=== PATIENT | male | born 1990 | race African-American/Black ===

== ENCOUNTER 2019-05-28 09:26 | Inpatient (IN) | payer MEDICARE, MEDICAID ==
[~2019-05-28] VITALS: Ht 165.1 cm; Wt 70.0 kg
[~2019-05-28 09:26] MED LIST: BACLOFEN 10 MG10 MG PO; LIORESAL 10 MG10 MG PO; VITAMIN D10000 UNIT PO
[2019-05-28 09:28] VITALS: BP 132/87
[2019-05-28] MEDS ORDERED: OXCARBAZEPINE300 MG PO (09:39)
[2019-05-28] MEDS ORDERED: TYLENOL325 MG PO (09:40)
[2019-05-28] MEDS ORDERED: FLUVOXAMINE MAL25 MG PO (09:40)
[2019-05-28 10:02] LABS: ABSOLUTE EOSINOPHILS 0.2 thou/uL (0.0-0.7); ABSOLUTE LYMPHOCYTES 1.2 thou/uL (0.8-5.3); ABSOLUTE MONOCYTES 0.7 thou/uL (0.0-1.2); ABSOLUTE NEUTROPHILS 7.6 thou/uL (1.6-8.1); BASOPHILS 0.5 %; EOSINOPHILS 2.5 %; HEMATOCRIT 42.7 % (42.0-52.0); HEMOGLOBIN 14.8 gm/dL (14.0-18.0); LYMPHOCYTES 12.5 %; MCH 27.9 pg (26.0-34.0); MCHC 34.8 g/dL (28.0-37.0); MCV 80.3 fL (80.0-100.0); MONOCYTES 7.1 %; MPV 7.6 fl. (7.2-11.1); NUCLEATED RBCS 0 /100WBC; PLATELET COUNT* 257 thou/uL (150-400); POLYS 77.4 %; RBC 5.32 mil/uL (4.50-6.00); RDW-CV 13.7 % (10.5-14.5); WBC 9.8 thou/uL (4.0-11.0)
[2019-05-28 10:05] LABS: ANION GAP 8 mmol/L (7-16); BUN 9 mg/dL (7-18); CALCIUM 8.9 mg/dL (8.5-10.1); CHLORIDE 105 mmol/L (98-107); CO2 29 mmol/L (21-32); GLUCOSE 94 mg/dL (70-99); SODIUM 142 mmol/L (136-145)
[2019-05-28 10:07] LABS: APTT 31.4 Seconds (25.0-31.3); PROTIME 10.5 Seconds (9.20-11.50)
[2019-05-28 10:18] LABS: ALBUMIN 3.8 g/dL (3.4-5.0); ALKALINE PHOSPHATASE 77 U/L (46-116); NT-PRO BRAIN NAT PEPTIDE 6 pg/mL (<300); SGOT 26 U/L (15-37); SGPT 53 U/L (30-65); TOTAL BILIRUBIN 0.2 mg/dL (<0.1-1.0); TOTAL PROTEIN 8.1 g/dL (6.4-8.2); TROPONIN-I LEVEL <0.06 ng/mL (<0.06)
[2019-05-28 10:35] LABS: URINE BILIRUBIN NEGATIVE (Negative); URINE BLOOD 2+ (Negative); URINE CLARITY CLEAR; URINE COLOR YELLOW; URINE GLUCOSE-RANDOM NEGATIVE (Negative); URINE KETONES NEGATIVE (Negative); URINE LEUKOCYTES-REFLEX NEGATIVE (Negative); URINE NITRITE-REFLEX NEGATIVE (Negative); URINE PROTEIN 2+ (Negative); URINE SPECIFIC GRAVITY >= 1.030 (1.005-1.030); URINE UROBILINOGEN 0.2 E.U./dl (0.2-1.0)
[2019-05-28 10:42] LABS: BACTERIA-REFLEX 1-9 Few /HPF (None Seen); CASTS None Seen /LPF (None Seen); CRYSTALS None Seen /LPF (None Seen); MUCUS 4-6 Moderate strn/LPF (None Seen); SQUAMOUS 4-10 Moderate /LPF (0-3); URINE RBC 3-10 Few /HPF (0-2); URINE WBC-REFLEX 0-5 Rare /HPF (0-5)
[2019-05-28 11:09] VITALS: BP 115/78
[2019-05-28 11:25] VITALS: BP 131/81
[2019-05-28 15:52] VITALS: BP 149/95
--- NOTE | 2019-05-28 17:24 | EKG ---
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 05/28/19 1724 0938 Bruce Almaguer MD, [facility] /EPI
--- NOTE | 2019-05-28 19:41 | NUR ---
ASSUSSMED CARE OF PT THIS AFTERNOON. PT CAME TO UNIT FROM ED. PT CAREGIVERS AND FAMILY AT PT BEDISIDE DURING ADMISSION QUESTIONS. PT IS NON VERBAL AND HAS 24/7 HOME CARE AT [facility]. HOURLY ROUNDING FOR PT NEEDS AND SAFETY.
[2019-05-28 20:00] VITALS: BP 118/73
[2019-05-29] VITALS: BP 113/59
[2019-05-29 04:00] VITALS: BP 107/58
--- NOTE | 2019-05-29 05:20 | NUR ---
ASSUMED CARE OF PT AFTER REPORT AT 1930. PT A&OX1-2. LIMITED SPEECH. VSS. PHYSICAL ASSESSMENT COMPLETED AND CHARTED. PT ON RA. PT TRACING SR/ST ON TELE. PT COMPLAINED OF ABDOMINAL PAIN-MEDS GIVEN PER MAR. INFORMED MO-KEYBOARDING CLERK ABOUT ORDERED HOME MEDS AND ASKED TO BRING IN THE HOSPITAL. PT TURNED TO SIDES. PT ABLE TO SLEEP WELL ON BED. CALL LIGHT WITHIN REACH.
[2019-05-29 05:30] LABS: ABSOLUTE BASOPHILS 0.1 thou/uL (0.0-0.2); ABSOLUTE EOSINOPHILS 0.2 thou/uL (0.0-0.7); ABSOLUTE LYMPHOCYTES 2.4 thou/uL (0.8-5.3); ABSOLUTE MONOCYTES 0.8 thou/uL (0.0-1.2); BASOPHILS 0.6 %; EOSINOPHILS 2.4 %; HEMATOCRIT 38.4 % (42.0-52.0); HEMOGLOBIN 13.1 gm/dL (14.0-18.0); LYMPHOCYTES 25.3 %; MCH 27.7 pg (26.0-34.0); MCV 81.5 fL (80.0-100.0); MONOCYTES 8.2 %; MPV 7.9 fl. (7.2-11.1); NUCLEATED RBCS 0 /100WBC; PLATELET COUNT* 238 thou/uL (150-400); POLYS 63.5 %; RBC 4.72 mil/uL (4.50-6.00); RDW-CV 13.8 % (10.5-14.5); WBC 9.4 thou/uL (4.0-11.0)
[2019-05-29 05:52] LABS: CALCIUM 8.6 mg/dL (8.5-10.1); CREATININE 0.9 mg/dL (0.6-1.3); POTASSIUM 3.8 mmol/L (3.5-5.1)
[2019-05-29 07:30] VITALS: BP 118/70
--- NOTE | 2019-05-29 14:13 | NUR ---
MET WITH PT, HAS CP, WILL ANSWER SIMPLE QUESTIONS AND SMILE. CALL TO CONTACT IN CHART/MO SCHWARTZ. SHE IS HIS BUSINESS INFORMATION ANALYST. PT LIVES IN [place] WITH ANOTHER RESIDENT. THEY HAVE 2 SORTING SUPERVISOR STAFF THRU [facility] THAT PROVIDE 03/04 CARE. PT IS TOTAL CARE, W/C BOUND. PER MO, HE HAS NO DPOA OR GUARDIAN AND [facility] IS IN THE PROCESS OF OBTAINING GUARDIANSHIP. PT HAS APPT WITH NEW PCP IN NOV/DR KARLA WOODWARD. PT HAS A SISTER WHO THE NURSES STATE VISITED THIS AM, BUT THERE IS NO DOCUMENTATION OF HER NAME IN CHART. MO STATED THAT THE SISTER TOLD THE ER SHE WAS DPOA AND THAT THERE WERE PAPERS THERE BUT THAT SISTER WAS NOT ABLE TO PRODUCE ANY PAPERWORK. THERE IS NO DPOA PAPERWORK IN THE ELECTRONIC CHART. [place] NEEDS CALLED AT [place] TO P[place] PT UP AND TRANSPORT HOME [phone]
[2019-05-29 15:00] VITALS: BP 154/83
[2019-05-29 15:23] VITALS: BP 123/81
[2019-05-29 20:00] VITALS: BP 138/80
[2019-05-30 00:22] VITALS: BP 117/62
[2019-05-30 04:30] VITALS: BP 116/70
--- NOTE | 2019-05-30 06:49 | NUR ---
ASSUMED CARE OF PT AFTER REPORT AT 1930. PT A&OX4. VSS. PHYSICAL ASSESSMENT COMPLETED AND CHARTED. PT ON RA. PT TRACING SR ON TELE. PT TURNED TO SIDES. PT COMPLAINED OF ABDOMINAL PAIN-MEDS GIVEN PER MAR. PT ABLE TO SLEEP WELL ON BED. CALL LIGHT WITHIN REACH.
[2019-05-30 08:02] VITALS: BP 128/77
--- NOTE | 2019-05-30 08:46 | NUR ---
ASSUMED CARE OF PT THIS AM AROUND 0715- FURRIER APPRENTICE IN PLACE ORDERED, TRACING SR- UPON ASSESSMENT PT NOTED TO BE RESTING IN BED- FUSSY THIS AM, WANTING TO GO HOME- PT A&O X1-2, WITH NOTED CP- BED REST IN PLACE WITH Q2 HOUR TURNS- INCONTINENT OF B/B- LCTA, RESP EVEN AND UN-LABORED- VSS, O2 SAT 97% ON RA- ABD FIRM/ROUND/NON-TENDER, BS X4 QUADS- PT NOTED TO HAVE BM THIS AM- IV NOTED TO RIGHT AC INTACT, IVF INFUSSING PRESCRIBED- PT REQUIRES ASSISTANCE WITH MEALS, GOOD PO INTAKE NOTED- BLE CONTRACTURES NOTED- CALL LIGHT AND PERSONAL BELONGINGS WITH IN REACH- HOURLY ROUNDS IN PLACE R/T SAFETY/NEEDS- ALL NEEDS MET AT THIS TIME-WCTM
[2019-05-30 10:01] VITALS: BP 128/77
[2019-05-30] MEDS ORDERED: PROTONIX40 M1 PO (10:11)
[2019-05-30] MEDS ORDERED: AUGMENTIN 875-1 EACH PO (10:13)
--- NOTE | 2019-05-30 11:02 | NUR ---
ORDERS RECEIVED FOR OKAY TO D/C BACK TO [facility] THIS SHIFT PER -IV TO RIGHT AC D/C'D ALONG WITH DIE EQUIPMENT OPERATOR- D/C TEACHING/EDUCATION/FOLLOW UP'S COMMUNICATED TO PT CARD WRITER HAND AT TIME OF D/C WITH ALL QUESTIONS AND CONCERNS ADDRESSED- WRITTEN EDUCAITON ALONG WITH SCRIPTS PROVIDED TO PT CARD WRITER HAND- BELONGINGS PACKED AND ACCOUNTED FOR PER CARD WRITER HAND- PT CURRENLTY AWAITING CARD WRITER HAND TO GET PT PERSONAL W/C FOR D/C- ALL NEEDS MET AT THIS TIME-WCTM
--- NOTE | 2019-05-30 11:09 | NUR ---
ORDERS RECEIVED FOR DC HOME. KELLI FROM [facility] THAT PROVIDES HIS 24/7 CARE HERE AND WILL TRANSPORT HOME. CALL PLACED TO CLARIBEL SCHWARTZ, HIS RESIDENTIAL SUP AND LEFT VMAIL. CHART COPIED RN TO GIVE INSTR TO KELLI.
== END 2019-05-30 11:43 | disposition home or self-care (01) | DRG 177 ==
LOC: M.ERS 09:26 → M.TBA-ER 10:39 → M.2W 10:39
PROVIDERS: Family Medicine; ADMIT Internal Medicine
DX: J69.0 Pneumonitis due to inhalation of food and vomit (principal); G93.41 Metabolic encephalopathy; G80.9 Cerebral palsy, unspecified; K21.9 Gastro-esophageal reflux disease without esophagitis; R09.1 Pleurisy; Z79.899 Other long term (current) drug therapy

== ENCOUNTER 2019-06-06 20:23 | Emergency (ER) | payer MEDICARE, MEDICAID ==
[~2019-06-06] VITALS: Ht 160 cm; Wt 70.0 kg
[~2019-06-06 20:23] MED LIST changes: +AUGMENTIN 875-1 EACH PO; +FLUVOXAMINE MAL25 MG PO; +OXCARBAZEPINE300 MG PO; +PROTONIX40 M1 PO; +TYLENOL325 MG PO
[2019-06-06] MEDS ORDERED: RISPERDAL 1 MG T1 MG PO (20:54)
[2019-06-06 21:58] LABS: ABSOLUTE BASOPHILS 0.1 thou/uL (0.0-0.2); ABSOLUTE EOSINOPHILS 0.4 thou/uL (0.0-0.7); ABSOLUTE LYMPHOCYTES 1.7 thou/uL (0.8-5.3); ABSOLUTE MONOCYTES 0.8 thou/uL (0.0-1.2); ABSOLUTE NEUTROPHILS 7.4 thou/uL (1.6-8.1); BASOPHILS 0.7 %; EOSINOPHILS 3.7 %; HEMATOCRIT 44.5 % (42.0-52.0); HEMOGLOBIN 15.1 gm/dL (14.0-18.0); LYMPHOCYTES 16.2 %; MCH 27.3 pg (26.0-34.0); MCV 80.2 fL (80.0-100.0); MONOCYTES 7.5 %; MPV 7.9 fl. (7.2-11.1); NUCLEATED RBCS 0 /100WBC; PLATELET COUNT* 336 thou/uL (150-400); POLYS 71.9 %; RBC 5.54 mil/uL (4.50-6.00); RDW-CV 13.4 % (10.5-14.5); WBC 10.4 thou/uL (4.0-11.0)
[2019-06-06 22:03] LABS: CALCIUM 9.2 mg/dL (8.5-10.1); CREATININE 0.8 mg/dL (0.6-1.3); POTASSIUM 3.3 mmol/L (3.5-5.1)
[2019-06-06 22:08] LABS: ALBUMIN 3.6 g/dL (3.4-5.0); TOTAL BILIRUBIN 0.1 mg/dL (<0.1-1.0); TOTAL PROTEIN 8.1 g/dL (6.4-8.2)
[2019-06-06 22:43] LABS: URINE BILIRUBIN NEGATIVE (Negative); URINE BLOOD 1+ (Negative); URINE CLARITY CLEAR; URINE COLOR YELLOW; URINE GLUCOSE-RANDOM NEGATIVE (Negative); URINE KETONES NEGATIVE (Negative); URINE LEUKOCYTES-REFLEX NEGATIVE (Negative); URINE NITRITE-REFLEX NEGATIVE (Negative); URINE PROTEIN 2+ (Negative); URINE SPECIFIC GRAVITY 1.025 (1.005-1.030); URINE UROBILINOGEN 0.2 E.U./dl (0.2-1.0)
[2019-06-06 22:52] LABS: MUCUS 0-3 Light strn/LPF (None Seen); SQUAMOUS 0-3 Few /LPF (0-3)
[2019-06-06 22:53] LABS: CRYSTALS None Seen /LPF (None Seen); HYALINE CASTS 0-3 Few /LPF (None Seen)
[2019-06-06 22:54] LABS: BACTERIA-REFLEX 1-9 Few /HPF (None Seen); URINE RBC 3-10 Few /HPF (0-2); URINE WBC-REFLEX 0-5 Rare /HPF (0-5)
[2019-06-06 23:25] VITALS: BP 130/75
== END 2019-06-06 23:26 | disposition home or self-care (01) ==
LOC: M.ERS 20:23
PROVIDERS: Family Medicine
DX: M79.641 Pain in right hand (principal); M79.89 Other specified soft tissue disorders

== ENCOUNTER 2019-06-15 14:48 | Emergency (ER) | payer MEDICARE, MEDICAID ==
[~2019-06-15] VITALS: Ht 172.7 cm; Wt 83.9 kg
[~2019-06-15 14:48] MED LIST changes: +RISPERDAL 1 MG T1 MG PO
[2019-06-15 15:17] LABS: ABSOLUTE BASOPHILS 0.1 thou/uL (0.0-0.2); ABSOLUTE EOSINOPHILS 0.2 thou/uL (0.0-0.7); ABSOLUTE LYMPHOCYTES 1.7 thou/uL (0.8-5.3); ABSOLUTE MONOCYTES 0.6 thou/uL (0.0-1.2); ABSOLUTE NEUTROPHILS 6.1 thou/uL (1.6-8.1); BASOPHILS 0.6 %; EOSINOPHILS 2.5 %; HEMATOCRIT 40.9 % (42.0-52.0); LYMPHOCYTES 19.6 %; MCH 27.6 pg (26.0-34.0); MCHC 34.3 g/dL (28.0-37.0); MCV 80.5 fL (80.0-100.0); MONOCYTES 6.5 %; MPV 7.9 fl. (7.2-11.1); NUCLEATED RBCS 0 /100WBC; PLATELET COUNT* 284 thou/uL (150-400); POLYS 70.8 %; RBC 5.08 mil/uL (4.50-6.00); RDW-CV 13.7 % (10.5-14.5); WBC 8.6 thou/uL (4.0-11.0)
[2019-06-15 15:44] LABS: ANION GAP 6 mmol/L (7-16); BUN 8 mg/dL (7-18); CHLORIDE 105 mmol/L (98-107); CO2 31 mmol/L (21-32); CREATININE 0.9 mg/dL (0.6-1.3); GLUCOSE 106 mg/dL (70-99); POTASSIUM 3.9 mmol/L (3.5-5.1); SODIUM 142 mmol/L (136-145)
[2019-06-15 15:48] LABS: URINE BILIRUBIN NEGATIVE (Negative); URINE BLOOD 2+ (Negative); URINE CLARITY CLOUDY; URINE COLOR YELLOW; URINE GLUCOSE-RANDOM NEGATIVE (Negative); URINE KETONES NEGATIVE (Negative); URINE LEUKOCYTES-REFLEX NEGATIVE (Negative); URINE NITRITE-REFLEX NEGATIVE (Negative); URINE PROTEIN 2+ (Negative); URINE UROBILINOGEN 0.2 E.U./dl (0.2-1.0)
[2019-06-15 15:48] LABS: ALBUMIN 3.4 g/dL (3.4-5.0); ALKALINE PHOSPHATASE 78 U/L (46-116); LIPASE 165 U/L (73-393); SGOT 26 U/L (15-37); SGPT 52 U/L (30-65); TOTAL BILIRUBIN 0.2 mg/dL (<0.1-1.0); TOTAL PROTEIN 7.6 g/dL (6.4-8.2); TROPONIN-I LEVEL <0.06 ng/mL (<0.06)
[2019-06-15 15:55] LABS: SQUAMOUS 0-3 Few /LPF (0-3); URINE RBC 0-2 Rare /HPF (0-2); URINE WBC-REFLEX None Seen /HPF (0-5)
[2019-06-15 15:56] LABS: AMORPHOUS URATES Moderate /LPF (None Seen); CASTS None Seen /LPF (None Seen)
[2019-06-15] MEDS ORDERED: PEPCID20 MG PO (17:21)
[2019-06-15] MEDS ORDERED: JOCK ITCH15 G1 TOP (17:21)
[2019-06-15 18:17] VITALS: BP 114/63
--- NOTE | 2019-06-16 16:55 | EKG ---
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: : 1990 Requested By: Arias Paige Order Number: [id number] MD: Bruce Almaguer Measurements Intervals [place] Rate: 71 P: 1 SD: 152 QRS: 39 QRSD: 80 T: 41 QT: 347 QTc: 377 Interpretive Statements Sinus rhythm Borderline T wave abnormalities Compared to ECG 05/28/2019 09:38:40 T-wave abnormality now present Electronically Signed On 06-16-2019 16:55:40 CDT by Bruce Almaguer [email or web address] <ELECTRONICALLY SIGNED> By: Bruce Almaguer MD, [facility] 06/16/19 1655 D: [id number] Bruce Almaguer MD, [facility] /EPI
--- NOTE | 2019-06-16 16:55 | EKG ---
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
== END 2019-06-15 18:19 | disposition home or self-care (01) ==
LOC: M.ERS 14:48
PROVIDERS: Emergency Medicine Emergency Medical Services
DX: B35.6 Tinea cruris (principal); R10.13 Epigastric pain; R07.89 Other chest pain

== ENCOUNTER 2019-06-25 21:41 | Emergency (ER) | payer MEDICARE, MEDICAID ==
[~2019-06-25] VITALS: Ht 175.3 cm; Wt 66.7 kg
[~2019-06-25 21:41] MED LIST changes: +JOCK ITCH15 G1 TOP; +PEPCID20 MG PO
[2019-06-25 22:22] LABS: ABSOLUTE BASOPHILS 0.1 thou/uL (0.0-0.2); ABSOLUTE EOSINOPHILS 0.5 thou/uL (0.0-0.7); ABSOLUTE LYMPHOCYTES 1.7 thou/uL (0.8-5.3); ABSOLUTE MONOCYTES 0.6 thou/uL (0.0-1.2); ABSOLUTE NEUTROPHILS 5.9 thou/uL (1.6-8.1); BASOPHILS 0.9 %; EOSINOPHILS 5.2 %; HEMATOCRIT 40.3 % (42.0-52.0); HEMOGLOBIN 13.8 gm/dL (14.0-18.0); LYMPHOCYTES 19.3 %; MCH 27.6 pg (26.0-34.0); MCHC 34.2 g/dL (28.0-37.0); MCV 80.7 fL (80.0-100.0); MONOCYTES 6.4 %; MPV 7.9 fl. (7.2-11.1); NUCLEATED RBCS 0 /100WBC; PLATELET COUNT* 263 thou/uL (150-400); POLYS 68.2 %; WBC 8.6 thou/uL (4.0-11.0)
[2019-06-25 22:40] LABS: CALCIUM 9.5 mg/dL (8.5-10.1); CREATININE 0.9 mg/dL (0.6-1.3); POTASSIUM 3.7 mmol/L (3.5-5.1)
[2019-06-25 22:45] LABS: ALBUMIN 3.6 g/dL (3.4-5.0); TOTAL BILIRUBIN 0.2 mg/dL (<0.1-1.0); TOTAL PROTEIN 7.6 g/dL (6.4-8.2)
[2019-06-26] MEDS ORDERED: KEFLEX500 M1 PO (01:01)
[2019-06-26 01:25] VITALS: BP 140/72
== END 2019-06-26 01:27 | disposition home or self-care (01) ==
LOC: M.ERS 21:41
PROVIDERS: Emergency Medicine
DX: S50.811A Abrasion of right forearm, initial encounter (principal); X58.XXXA Exposure to other specified factors, initial encounter; Y93.89 Activity, other specified; Y92.89 Other specified places as the place of occurrence of the external cause; Y99.8 Other external cause status

== ENCOUNTER 2019-08-12 14:01 | Emergency (ER) | payer MEDICARE, MEDICAID ==
[~2019-08-12] VITALS: Ht 165.1 cm; Wt 90.7 kg
[~2019-08-12 14:01] MED LIST changes: +KEFLEX500 M1 PO
[2019-08-12] MEDS ORDERED: RISPERIDONE 00.25 M1 PO (14:10)
[2019-08-12 15:41] VITALS: BP 140/90
== END 2019-08-12 15:42 | disposition home or self-care (01) ==
LOC: M.ERS 14:01
DX: S00.01XA Abrasion of scalp, initial encounter (principal); S60.811A Abrasion of right wrist, initial encounter; G80.9 Cerebral palsy, unspecified; W22.8XXA Striking against or struck by other objects, initial encounter; Y93.89 Activity, other specified; Y92.89 Other specified places as the place of occurrence of the external cause; Y99.8 Other external cause status